=== PATIENT | male | born 1930 | race African-American/Black ===

== ENCOUNTER 2017-04-25 13:06 | Inpatient (IN) | payer MEDICARE, OTHER ==
[~2017-04-25] VITALS: Ht 170.2 cm; Wt 72.0 kg
[2017-04-25] MEDS ORDERED: SODIUM CHLORIDE 0.9% 500 ML IVB ONE (13:51)
[2017-04-25 14:51] LABS: Hematocrit 36.8 % (41.0-53.0); Hemoglobin 11.9 g/dL (13.5-17.5); Mean Corpuscular Hemoglobin 28.5 pg (28.0-32.0); Mean Corpuscular Hgb Conc. 32.3 g/dL (32.0-36.0); Mean Corpuscular Volume 88.3 fL (80.0-100.0); Platelet Count (auto) 179 10^3/uL (140-450); Red Blood Cells 4.17 10^6/uL (4.5-5.90); White Blood Cell 4.9 10^3/uL (4.4-10.8)
[2017-04-25 15:00] LABS: Band Neutrophils % (manual) 0; Eosinophils % (manual) 0 (0-7)
[2017-04-25 15:01] LABS: Basophils % (manual) 0 (0.0-2.0); Blast Cells 0; Metamyelocytes % 0; Myelocytes % 0; Promyelocytes % 0; Reactive Lymphocytes 0
[2017-04-25 15:14] LABS: Lymphocytes % (manual) 11 (10.0-50.0); Monocytes % (manual) 2 (0-12)
[2017-04-25 15:15] LABS: BUN/Creatinine Ratio 14.4; Magnesium 1.9 mg/dL (1.6-2.6)
[2017-04-25 15:20] LABS: Bilirubin, Total 0.8 mg/dL (0.2-1.0); Total Protein 6.6 g/dL (6.4-8.2)
[2017-04-25] MEDS ORDERED: ASPirin 81 mg TAB PO ONE (20:00)
[2017-04-25] MEDS ORDERED: MORPHINE SULFATE 4 MG/ML SYR/VIAL IV PRN (20:00)
[2017-04-25] MEDS ORDERED: LACTULOSE 20Gm/30ML SOLN PO PRN (20:00)
[2017-04-25] MEDS ORDERED: NITROGLYCERIN 0.4 MG SL TAB SL PRN (20:00)
[2017-04-25] MEDS ORDERED: DEXTROSE (50%) 50ML SYRG IV PRN (20:00)
[2017-04-25] MEDS: SODIUM CHLORIDE 0.9% 1,000 ML IV SCH (20:41)
[2017-04-25] MEDS ORDERED: APIX2.5T OR (21:05)
[2017-04-25 21:15] VITALS: BP 127/56
[2017-04-25] MEDS ORDERED: ATORVASTATIN 20 MG TAB PO SCH (22:00)
[2017-04-25] MEDS: METOPROLOL TARTRATE 25 MG TAB PO SCH (22:37)
[2017-04-25 23:00] VITALS: BP 127/56
[2017-04-26 05:00] VITALS: BP 134/83
[2017-04-26] MEDS: ACCU-CHEK COMFORT CURVE STRIP VI SCH ×4 (06:00→17:44)
[2017-04-26] MEDS: InsuLIN REG 1unit/0.01ml Soln (100units/ml) SC SCH ×4 (06:00→17:45)
[2017-04-26 06:30] LABS: Basophils # (auto) 0 uL; Basophils % (auto) 0.3 % (0.0-2.0); Eosinophils # (auto) 0 uL; Eosinophils % (auto) 0.1 % (0.0-7.0); Hemoglobin 12.1 g/dL (13.5-17.5); Lymphocytes # (auto) 0.6 uL; Lymphocytes % (auto) 13.5 % (10.0-50.0); Mean Corpuscular Hemoglobin 29.1 pg (28.0-32.0); Mean Corpuscular Hgb Conc. 32.6 g/dL (32.0-36.0); Mean Corpuscular Volume 89.5 fL (80.0-100.0); Monocytes # (auto) 0.4 uL; Monocytes % (auto) 9.4 % (0.0-12.0); Neutrophils # (auto) 3.2 uL; Neutrophils % (auto) 76.7 % (37.0-80.0); Nucleated Red Blood Cells % 0.1 %; Platelet Count (auto) 170 10^3/uL (140-450); Red Blood Cells 4.14 10^6/uL (4.5-5.90); Red Cell Distribution Width 14.8 % (11.8-14.3); White Blood Cell 4.1 10^3/uL (4.4-10.8)
[2017-04-26 06:49] LABS: INR 1.22 (0.9-1.15); Partial Thromboplastin Time 32.1 sec (22.64-33.71); Prothrombin Time 13.3 sec (9.37-12.3)
[2017-04-26 07:05] LABS: Albumin 2.9 g/dL (3.4-5.0); BUN/Creatinine Ratio 17.5; Bilirubin, Total 0.8 mg/dL (0.2-1.0); Calcium 8.1 mg/dL (8.5-10.1); Potassium 4.1 mmol/L (3.5-5.1); Total Protein 6.3 g/dL (6.4-8.2)
[2017-04-26] MEDS: SODIUM CHLORIDE 0.9% 1,000 ML IV SCH ×2 (08:25→20:37)
[2017-04-26 08:26] VITALS: BP 138/69
[2017-04-26] MEDS: METOPROLOL TARTRATE 25 MG TAB PO SCH ×2 (09:43→21:48)
[2017-04-26] MEDS: PANTOPRAZOLE 40 MG/10 ML VIAL IV SCH (09:43)
[2017-04-26] MEDS: AMIODARONE HCL 200 MG TAB PO SCH (09:44)
[2017-04-26] MEDS ORDERED: ASPirin 81 mg TAB PO SCH (10:00)
[2017-04-26] MEDS ORDERED: ENOXAPARIN SOD 30 MG/0.3 ML SYRINGE SC SCH (10:00)
[2017-04-26] MEDS ORDERED: ENALAPRIL MALEATE 2.5 MG TAB PO SCH (10:00)
[2017-04-26] MEDS ORDERED: APIXABAN 2.5 MG TAB PO SCH (10:00)
[2017-04-26] MEDS ORDERED: PATIENTS OWN MEDICATION (eliquis 5 MG) PO SCH (10:00)
[2017-04-26 10:17] LABS: Urine Bacteria FEW /hpf (None Seen); Urine Blood 2+ /uL (Negative); Urine Mucus FEW (None Seen); Urine Specific Gravity 1.022 (1.001-1.035); Urine WBC 1 /hpf (0 - 3)
[2017-04-26] MEDS ORDERED: ACETAMINOPHEN 325 MG TAB PO ONE (11:45)
[2017-04-26] MEDS ORDERED: ACETAMINOPHEN 325 MG TAB PO PRN (12:15)
[2017-04-26 12:20] VITALS: BP 99/60
[2017-04-26] MEDS ORDERED: cefTRIAXone 1GM/10ml IVPUSH 10 ML IV ONE (12:30)
[2017-04-26] MEDS ORDERED: OSELTAMIVIR 30 MG CAP PO SCH (15:42)
[2017-04-26 16:54] VITALS: BP 141/50
[2017-04-26] MEDS ORDERED: MELA3TAB27 PO (18:42)
[2017-04-26] MEDS ORDERED: MISC450C PO (18:42)
[2017-04-26] MEDS ORDERED: METO25TA62 PO (18:42)
[2017-04-26] MEDS ORDERED: CHOL100047 PO (18:42)
[2017-04-26] MEDS ORDERED: RAMI2.5C33 PO (18:42)
[2017-04-26] MEDS ORDERED: AMIO200T33 PO (18:42)
[2017-04-26] MEDS ORDERED: APIX2.5T PO (18:42)
[2017-04-26] MEDS: APIXABAN 5 MG TAB PO SCH (21:46)
[2017-04-26] MEDS: OSELTAMIVIR 75 MG PO SCH (21:46)
[2017-04-26 22:14] VITALS: BP 131/62
[2017-04-27] MEDS: ACCU-CHEK COMFORT CURVE STRIP VI SCH ×5 (00:10→23:51)
[2017-04-27 05:14] VITALS: BP 130/53
[2017-04-27] MEDS: InsuLIN REG 1unit/0.01ml Soln (100units/ml) SC SCH ×5 (05:37→23:51)
[2017-04-27 09:00] VITALS: BP 144/74
[2017-04-27] MEDS: cefTRIAXone 1GM/10ml IVPUSH 10 ML IV SCH (09:37)
[2017-04-27] MEDS: APIXABAN 5 MG TAB PO SCH ×2 (09:45→22:05)
[2017-04-27] MEDS: AMIODARONE HCL 200 MG TAB PO SCH (09:45)
[2017-04-27] MEDS: METOPROLOL TARTRATE 25 MG TAB PO SCH ×2 (09:46→22:00)
[2017-04-27] MEDS: PANTOPRAZOLE 40 MG/10 ML VIAL IV SCH (09:46)
[2017-04-27] MEDS: OSELTAMIVIR 75 MG PO SCH ×2 (09:46→22:19)
[2017-04-27 13:00] VITALS: BP 144/80
[2017-04-27 14:24] LABS: Basophils # (auto) 0 uL; Basophils % (auto) 0.2 % (0.0-2.0); Eosinophils # (auto) 0 uL; Hemoglobin 11.4 g/dL (13.5-17.5); Lymphocytes # (auto) 0.3 uL; Lymphocytes % (auto) 6.9 % (10.0-50.0); Mean Corpuscular Hemoglobin 29.1 pg (28.0-32.0); Mean Corpuscular Hgb Conc. 32.7 g/dL (32.0-36.0); Mean Corpuscular Volume 88.9 fL (80.0-100.0); Monocytes # (auto) 0.3 uL; Monocytes % (auto) 5.6 % (0.0-12.0); Neutrophils # (auto) 4.4 uL; Neutrophils % (auto) 87.3 % (37.0-80.0); Nucleated Red Blood Cells % 0.1 %; Platelet Count (auto) 163 10^3/uL (140-450); Red Blood Cells 3.94 10^6/uL (4.5-5.90)
[2017-04-27 14:47] LABS: Albumin 2.4 g/dL (3.4-5.0); Bilirubin, Total 0.5 mg/dL (0.2-1.0); Calcium 7.4 mg/dL (8.5-10.1); Potassium 3.5 mmol/L (3.5-5.1); Total Protein 5.7 g/dL (6.4-8.2)
[2017-04-27] MEDS: SODIUM CHLORIDE 0.9% 1,000 ML IV SCH ×2 (16:14→22:05)
[2017-04-27 18:07] VITALS: BP 149/72
[2017-04-27 21:47] VITALS: BP 125/53
[2017-04-28 05:00] VITALS: BP 134/50
[2017-04-28] MEDS: InsuLIN REG 1unit/0.01ml Soln (100units/ml) SC SCH ×3 (06:00→17:47)
[2017-04-28] MEDS: ACCU-CHEK COMFORT CURVE STRIP VI SCH ×3 (06:33→17:47)
[2017-04-28 08:00] VITALS: BP 137/70
[2017-04-28] MEDS: PANTOPRAZOLE 40 MG/10 ML VIAL IV SCH (09:39)
[2017-04-28] MEDS: cefTRIAXone 1GM/10ml IVPUSH 10 ML IV SCH (09:39)
[2017-04-28] MEDS: OSELTAMIVIR 75 MG PO SCH ×2 (09:40→22:21)
[2017-04-28] MEDS: AMIODARONE HCL 200 MG TAB PO SCH (09:40)
[2017-04-28] MEDS: APIXABAN 5 MG TAB PO SCH ×2 (09:40→22:22)
[2017-04-28] MEDS: METOPROLOL TARTRATE 25 MG TAB PO SCH ×2 (09:41→22:00)
[2017-04-28] MEDS: SODIUM CHLORIDE 0.9% 1,000 ML IV SCH ×2 (09:41→22:55)
[2017-04-28 13:00] VITALS: BP 129/65
[2017-04-28 17:00] VITALS: BP 133/59
[2017-04-28 22:29] VITALS: BP 136/86
[2017-04-29] MEDS: ACCU-CHEK COMFORT CURVE STRIP VI SCH ×5 (00:43→23:50)
[2017-04-29 05:00] VITALS: BP 133/57
[2017-04-29] MEDS: InsuLIN REG 1unit/0.01ml Soln (100units/ml) SC SCH ×5 (06:00→23:50)
[2017-04-29 08:00] VITALS: BP 137/51
[2017-04-29] MEDS: PANTOPRAZOLE 40 MG/10 ML VIAL IV SCH (10:39)
[2017-04-29] MEDS: AMIODARONE HCL 200 MG TAB PO SCH (10:40)
[2017-04-29] MEDS: APIXABAN 5 MG TAB PO SCH ×2 (10:40→21:57)
[2017-04-29] MEDS: OSELTAMIVIR 75 MG PO SCH ×2 (10:40→21:57)
[2017-04-29] MEDS: METOPROLOL TARTRATE 25 MG TAB PO SCH (10:41)
[2017-04-29] MEDS: cefTRIAXone 1GM/10ml IVPUSH 10 ML IV SCH (10:41)
[2017-04-29 11:12] LABS: Hepatitis B Surface Antibody Negative
[2017-04-29 11:22] LABS: Hepatitis B Surface Antigen Negative (Negative)
[2017-04-29 11:49] LABS: Hepatitis A Total Antibody Positive; Hepatitis C Antibody Negative (Negative)
[2017-04-29 11:50] LABS: Hepatitis B Core Total AB Negative
[2017-04-29] MEDS: SODIUM CHLORIDE 0.9% 1,000 ML IV SCH ×2 (12:58→23:55)
[2017-04-29 13:00] VITALS: BP 124/51
[2017-04-29 16:29] VITALS: BP 121/54
[2017-04-29 21:31] VITALS: BP 146/99
[2017-04-30 04:54] VITALS: BP 145/67
[2017-04-30] MEDS: InsuLIN REG 1unit/0.01ml Soln (100units/ml) SC SCH ×3 (05:52→18:00)
[2017-04-30] MEDS: ACCU-CHEK COMFORT CURVE STRIP VI SCH ×3 (05:52→18:04)
[2017-04-30 08:58] VITALS: BP 138/59
[2017-04-30] MEDS: cefTRIAXone 1GM/10ml IVPUSH 10 ML IV SCH (09:35)
[2017-04-30] MEDS: PANTOPRAZOLE 40 MG/10 ML VIAL IV SCH (10:12)
[2017-04-30] MEDS: OSELTAMIVIR 75 MG PO SCH ×2 (10:13→22:45)
[2017-04-30] MEDS: AMIODARONE HCL 200 MG TAB PO SCH (10:13)
[2017-04-30] MEDS: APIXABAN 5 MG TAB PO SCH ×2 (10:13→22:45)
[2017-04-30] MEDS: SODIUM CHLORIDE 0.9% 1,000 ML IV SCH (12:12)
[2017-04-30 13:31] VITALS: BP 134/60
[2017-04-30 16:05] VITALS: BP 133/60
[2017-04-30 22:00] VITALS: BP 149/61
[2017-05-01] MEDS: SODIUM CHLORIDE 0.9% 1,000 ML IV SCH ×2 (00:55→12:07)
[2017-05-01 05:19] LABS: Basophils # (auto) 0 uL; Basophils % (auto) 0.6 % (0.0-2.0); Eosinophils # (auto) 0 uL; Eosinophils % (auto) 0.1 % (0.0-7.0); Hematocrit 34.5 % (41.0-53.0); Lymphocytes # (auto) 0.7 uL; Lymphocytes % (auto) 15.4 % (10.0-50.0); Mean Corpuscular Hemoglobin 28.6 pg (28.0-32.0); Mean Corpuscular Volume 89.2 fL (80.0-100.0); Monocytes # (auto) 0.3 uL; Monocytes % (auto) 7.6 % (0.0-12.0); Neutrophils # (auto) 3.4 uL; Neutrophils % (auto) 76.3 % (37.0-80.0); Platelet Count (auto) 199 10^3/uL (140-450); Red Blood Cells 3.86 10^6/uL (4.5-5.90); Red Cell Distribution Width 14.5 % (11.8-14.3); White Blood Cell 4.5 10^3/uL (4.4-10.8)
[2017-05-01 05:39] LABS: Albumin 2.1 g/dL (3.4-5.0); BUN/Creatinine Ratio 11.1; Bilirubin, Total 0.7 mg/dL (0.2-1.0); Calcium 7.6 mg/dL (8.5-10.1); Total Protein 5.9 g/dL (6.4-8.2)
[2017-05-01 05:42] VITALS: BP 139/69
[2017-05-01 05:50] LABS: Potassium 2.8 mmol/L (3.5-5.1)
[2017-05-01] MEDS: ACCU-CHEK COMFORT CURVE STRIP VI SCH ×4 (06:00→18:45)
[2017-05-01] MEDS: InsuLIN REG 1unit/0.01ml Soln (100units/ml) SC SCH ×4 (06:00→18:00)
[2017-05-01] MEDS: POTASSIUM CHL 20MEQ/50ML 50 ML IV SCH ×4 (07:48→09:08)
[2017-05-01] MEDS: cefTRIAXone 1GM/10ml IVPUSH 10 ML IV SCH (08:19)
[2017-05-01 08:30] VITALS: BP 153/70
[2017-05-01] MEDS ORDERED: POTASSIUM CHLORIDE 20 MEQ, LIDOCAINE 1% (LOCAL ANESTH.) 2 ML in SODIUM CHL 0.9% 100 ML IV ONE (09:15)
[2017-05-01] MEDS: AMIODARONE HCL 200 MG TAB PO SCH (12:05)
[2017-05-01] MEDS: OSELTAMIVIR 75 MG PO SCH (12:06)
[2017-05-01] MEDS: APIXABAN 5 MG TAB PO SCH ×2 (12:06→21:59)
[2017-05-01] MEDS: PANTOPRAZOLE 40 MG/10 ML VIAL IV SCH (12:06)
[2017-05-01 12:44] VITALS: BP 145/71
[2017-05-01 17:00] VITALS: BP 148/67
[2017-05-01 22:00] VITALS: BP 150/76
[2017-05-02] MEDS: ACCU-CHEK COMFORT CURVE STRIP VI SCH ×3 (00:23→11:23)
[2017-05-02] MEDS: SODIUM CHLORIDE 0.9% 1,000 ML IV SCH (01:55)
[2017-05-02 05:00] VITALS: BP 153/68
[2017-05-02] MEDS: InsuLIN REG 1unit/0.01ml Soln (100units/ml) SC SCH ×3 (05:36→11:24)
[2017-05-02 08:57] LABS: Basophils # (auto) 0 uL; Basophils % (auto) 0.4 % (0.0-2.0); Eosinophils # (auto) 0 uL; Eosinophils % (auto) 0.2 % (0.0-7.0); Hematocrit 34.4 % (41.0-53.0); Hemoglobin 11.1 g/dL (13.5-17.5); Lymphocytes # (auto) 0.6 uL; Lymphocytes % (auto) 12.9 % (10.0-50.0); Mean Corpuscular Hgb Conc. 32.4 g/dL (32.0-36.0); Mean Corpuscular Volume 86.5 fL (80.0-100.0); Monocytes # (auto) 0.4 uL; Neutrophils # (auto) 3.3 uL; Neutrophils % (auto) 77.5 % (37.0-80.0); Nucleated Red Blood Cells % 0.2 %; Platelet Count (auto) 244 10^3/uL (140-450); Red Blood Cells 3.98 10^6/uL (4.5-5.90); Red Cell Distribution Width 14.2 % (11.8-14.3); White Blood Cell 4.3 10^3/uL (4.4-10.8)
[2017-05-02 09:00] VITALS: BP 154/54
[2017-05-02 09:00] LABS: Albumin 1.9 g/dL (3.4-5.0); BUN/Creatinine Ratio 11.1; Bilirubin, Total 0.7 mg/dL (0.2-1.0); Calcium 7.6 mg/dL (8.5-10.1); Total Protein 5.5 g/dL (6.4-8.2)
[2017-05-02 09:04] LABS: Potassium 2.8 mmol/L (3.5-5.1)
[2017-05-02] MEDS: PANTOPRAZOLE 40 MG/10 ML VIAL IV SCH (09:12)
[2017-05-02] MEDS: APIXABAN 5 MG TAB PO SCH (09:12)
[2017-05-02] MEDS: AMIODARONE HCL 200 MG TAB PO SCH (09:12)
[2017-05-02] MEDS: cefTRIAXone 1GM/10ml IVPUSH 10 ML IV SCH (09:13)
[2017-05-02] MEDS ORDERED: POTASSIUM CHL 10% (20 MEQ/15ML) 15ml ORAL SOLN PO ONE ×2 (09:15→14:30)
[2017-05-02] MEDS ORDERED: ARTIFICIAL TEARS 15ml EACHEYE ONE (10:00)
[2017-05-02 10:28] VITALS: BP 154/54
[2017-05-02 10:53] VITALS: BP 154/54
== END 2017-05-02 13:00 | disposition home or self-care (01) | DRG 871 ==
LOC: ER 13:06 → EDUNIT# 13:06 → EDBD 13:06 → TELE 13:07 → TELE-CENTR 21:12
PROVIDERS: ADMIT Family Medicine; ATTEND Family Medicine
DX: A41.9 Sepsis, unspecified organism (principal); G93.40 Encephalopathy, unspecified; E44.0 Moderate protein-calorie malnutrition; I48.0 Paroxysmal atrial fibrillation; G20 Parkinson's disease; D64.9 Anemia, unspecified; E11.9 Type 2 diabetes mellitus without complications; E78.00 Pure hypercholesterolemia, unspecified; E87.6 Hypokalemia; F02.80 Dementia in other diseases classified elsewhere, unspecified severity, without behavioral disturbance, psychotic disturbance, mood disturbance, and anxiety; I10 Essential (primary) hypertension; I67.2 Cerebral atherosclerosis; I70.0 Atherosclerosis of aorta; J10.1 Influenza due to other identified influenza virus with other respiratory manifestations; Z79.01 Long term (current) use of anticoagulants; Z79.4 Long term (current) use of insulin; Z83.3 Family history of diabetes mellitus; Z79.82 Long term (current) use of aspirin; Z79.899 Other long term (current) drug therapy; Z68.24 Body mass index [BMI] 24.0-24.9, adult
CPT/HCPCS: 36415; 70450; 71010; 76705; 80053; 80061; 81001; 82140; 82728; 82962; 83036; 83605; 83735; 83880; 84484; 85007; 85025; 85027; 85610; 85730; 86704; 86706; 86708; 86803; 87040; 87081; 87340; 87400; 93005; 94761; 96360; C9113; G9035

== ENCOUNTER 2017-05-10 13:14 | Emergency (ER) | payer MEDICARE, OTHER ==
[~2017-05-10] VITALS: Ht 172.7 cm; Wt 72.6 kg
[~2017-05-10 13:14] MED LIST: AMIO200T33 PO; APIX2.5T OR; APIX2.5T PO; CHOL100047 PO; MELA3TAB27 PO; METO25TA62 PO; MISC450C PO; RAMI2.5C33 PO
[2017-05-10 15:58] VITALS: BP 160/97
[2017-05-10] MEDS ORDERED: ACETAMINOPHEN 500 MG TAB PO ONE ×2 (16:26→16:30)
== END 2017-05-10 16:48 | disposition home or self-care (01) ==
LOC: EDBD 13:14 → ER 13:14
DX: S46.911A Strain of unspecified muscle, fascia and tendon at shoulder and upper arm level, right arm, initial encounter (principal); S20.411A Abrasion of right back wall of thorax, initial encounter; W07.XXXA Fall from chair, initial encounter; Y93.89 Activity, other specified; Y92.89 Other specified places as the place of occurrence of the external cause; Y99.8 Other external cause status
CPT/HCPCS: 73030

== ENCOUNTER 2017-05-18 16:44 | Inpatient (IN) | payer MEDICARE, OTHER ==
[~2017-05-18] VITALS: Ht 185.4 cm; Wt 68.0 kg
[2017-05-18 18:00] LABS: Basophils # (auto) 0.1 uL; Basophils % (auto) 0.5 % (0.0-2.0); Eosinophils # (auto) 0 uL; Eosinophils % (auto) 0.1 % (0.0-7.0); Hematocrit 40.7 % (41.0-53.0); Hemoglobin 12.7 g/dL (13.5-17.5); Lymphocytes # (auto) 0.5 uL; Lymphocytes % (auto) 2.7 % (10.0-50.0); Mean Corpuscular Hemoglobin 28.1 pg (28.0-32.0); Mean Corpuscular Hgb Conc. 31.3 g/dL (32.0-36.0); Mean Corpuscular Volume 89.8 fL (80.0-100.0); Monocytes # (auto) 0.4 uL; Monocytes % (auto) 2.2 % (0.0-12.0); Neutrophils # (auto) 16.6 uL; Neutrophils % (auto) 94.5 % (37.0-80.0); Nucleated Red Blood Cells % 0.1 %; Platelet Count (auto) 530 10^3/uL (140-450); Red Blood Cells 4.53 10^6/uL (4.5-5.90); Red Cell Distribution Width 14.6 % (11.8-14.3); White Blood Cell 17.5 10^3/uL (4.4-10.8)
[2017-05-18 18:32] LABS: Albumin 2.8 g/dL (3.4-5.0); BUN/Creatinine Ratio 16.3; Bilirubin, Total 1.6 mg/dL (0.2-1.0); Calcium 8.6 mg/dL (8.5-10.1); Magnesium 2.7 mg/dL (1.6-2.6); Potassium 4.3 mmol/L (3.5-5.1)
[2017-05-18] MEDS ORDERED: SODIUM CHLORIDE 0.9% 1,000 ML IVB ONE (20:15)
[2017-05-18] MEDS ORDERED: cefTRIAXone 1GM/10ml IVPUSH 10 ML IV ONE (20:30)
[2017-05-18] MEDS ORDERED: AZITHROMYCIN 500MG/ 250ML 250 ML IV ONE (20:30)
[2017-05-18 20:36] LABS: INR 1.31 (0.9-1.15); Partial Thromboplastin Time 30.8 sec (22.64-33.71); Prothrombin Time 14.3 sec (9.37-12.3)
[2017-05-18 22:41] LABS: Lactic Acid w/Reflex 3.9 mmol/L (0.4-2.0)
[2017-05-18 22:49] LABS: Urine Bacteria FEW /hpf (None Seen); Urine Blood Negative /uL (Negative); Urine Hyaline Cast MANY /lpf (0 - 2); Urine Mucus FEW (None Seen); Urine Specific Gravity 1.018 (1.001-1.035); Urine WBC 4 /hpf (0 - 3)
[2017-05-18] MEDS ORDERED: SODIUM CHLORIDE 0.9% 1,500 ML IV ONE (23:30)
[2017-05-19] MEDS ORDERED: MORPHINE SULFATE 10 MG/ML INJ 1ML SDV IV PRN (00:15)
[2017-05-19] MEDS ORDERED: VANCOMYCIN PER PHARMACY 0 MG IV SCH (00:15)
[2017-05-19] MEDS ORDERED: HYDROcodone-ACET 5/325MG TAB PO PRN (00:15)
[2017-05-19] MEDS ORDERED: ONDANSETRON HCL 4 MG/2 ML VIAL IV PRN (00:15)
[2017-05-19] MEDS ORDERED: VANCOMYCIN 1GM/250ML 250 ML IV ONE (00:30)
[2017-05-19] MEDS: PIPERACILLIN-TAZOB 2.25GM 50 ML IV SCH ×3 (06:17→22:06)
[2017-05-19 08:06] LABS: Basophils # (auto) 0.2 uL; Basophils % (auto) 0.8 % (0.0-2.0); Eosinophils # (auto) 0 uL; Hematocrit 36.8 % (41.0-53.0); Hemoglobin 12.1 g/dL (13.5-17.5); Lymphocytes # (auto) 0.7 uL; Lymphocytes % (auto) 3.8 % (10.0-50.0); Mean Corpuscular Hemoglobin 28.8 pg (28.0-32.0); Mean Corpuscular Hgb Conc. 32.8 g/dL (32.0-36.0); Mean Corpuscular Volume 87.7 fL (80.0-100.0); Monocytes # (auto) 0.7 uL; Monocytes % (auto) 3.8 % (0.0-12.0); Neutrophils # (auto) 16.5 uL; Neutrophils % (auto) 91.6 % (37.0-80.0); Platelet Count (auto) 351 10^3/uL (140-450); Red Blood Cells 4.19 10^6/uL (4.5-5.90); Red Cell Distribution Width 14.3 % (11.8-14.3)
[2017-05-19 08:34] LABS: BUN/Creatinine Ratio 19.3; Calcium 8.4 mg/dL (8.5-10.1); Potassium 4.2 mmol/L (3.5-5.1)
[2017-05-19] MEDS: APIXABAN 2.5 MG TAB PO SCH ×2 (10:53→22:06)
[2017-05-19] MEDS: SODIUM CHLORIDE 0.9% 1,000 ML IV SCH ×2 (14:24→22:05)
[2017-05-19 18:35] VITALS: BP 124/58
[2017-05-19] MEDS ORDERED: DOCU100T15 PO (21:16)
[2017-05-19] MEDS ORDERED: BUME0.5T3 PO (21:16)
[2017-05-19] MEDS ORDERED: TRAM50TA2 PO (21:16)
[2017-05-19] MEDS ORDERED: POTA-165 PO (21:16)
[2017-05-19 21:20] VITALS: BP 123/76
[2017-05-20] MEDS ORDERED: VANCOMYCIN 1GM/250ML 250 ML IV SCH (01:00)
[2017-05-20 05:00] VITALS: BP 128/74
[2017-05-20] MEDS: PIPERACILLIN-TAZOB 2.25GM 50 ML IV SCH (05:58)
[2017-05-20 08:00] VITALS: BP 139/67
[2017-05-20 08:04] LABS: Basophils # (auto) 0.1 uL; Basophils % (auto) 0.5 % (0.0-2.0); Eosinophils # (auto) 0.1 uL; Eosinophils % (auto) 1.2 % (0.0-7.0); Hemoglobin 10.5 g/dL (13.5-17.5); Lymphocytes # (auto) 0.8 uL; Lymphocytes % (auto) 8.3 % (10.0-50.0); Mean Corpuscular Hemoglobin 28.3 pg (28.0-32.0); Mean Corpuscular Hgb Conc. 31.8 g/dL (32.0-36.0); Mean Corpuscular Volume 88.9 fL (80.0-100.0); Monocytes # (auto) 0.5 uL; Monocytes % (auto) 5.8 % (0.0-12.0); Neutrophils # (auto) 7.9 uL; Neutrophils % (auto) 84.2 % (37.0-80.0); Platelet Count (auto) 308 10^3/uL (140-450); Red Blood Cells 3.72 10^6/uL (4.5-5.90); Red Cell Distribution Width 14.4 % (11.8-14.3); White Blood Cell 9.3 10^3/uL (4.4-10.8)
[2017-05-20 08:19] LABS: BUN/Creatinine Ratio 19.6; Calcium 7.8 mg/dL (8.5-10.1)
[2017-05-20 08:37] VITALS: BP 139/67
[2017-05-20] MEDS: LEVOFLOXACIN 500MG 100 ML IV SCH (10:24)
[2017-05-20] MEDS: APIXABAN 2.5 MG TAB PO SCH ×2 (10:24→22:22)
[2017-05-20] MEDS: AMIODARONE HCL 200 MG TAB PO SCH (10:25)
[2017-05-20 13:00] VITALS: BP 125/59
[2017-05-20 17:16] VITALS: BP 142/60
[2017-05-20] MEDS: Boost Glucose Control 8 Ounces PO SCH (20:55)
[2017-05-20 22:00] VITALS: BP 147/67
[2017-05-20] MEDS: ASCORBIC ACID 500 MG TAB PO SCH (22:22)
[2017-05-21 05:00] VITALS: BP 127/70
[2017-05-21 07:44] LABS: Basophils # (auto) 0.1 uL; Basophils % (auto) 0.6 % (0.0-2.0); Eosinophils # (auto) 0.1 uL; Eosinophils % (auto) 0.9 % (0.0-7.0); Hematocrit 34.5 % (41.0-53.0); Hemoglobin 11.1 g/dL (13.5-17.5); Lymphocytes # (auto) 0.7 uL; Lymphocytes % (auto) 6.9 % (10.0-50.0); Mean Corpuscular Hemoglobin 28.6 pg (28.0-32.0); Mean Corpuscular Hgb Conc. 32.3 g/dL (32.0-36.0); Mean Corpuscular Volume 88.4 fL (80.0-100.0); Monocytes # (auto) 0.5 uL; Monocytes % (auto) 5.5 % (0.0-12.0); Neutrophils # (auto) 8.1 uL; Neutrophils % (auto) 86.1 % (37.0-80.0); Platelet Count (auto) 323 10^3/uL (140-450); Red Cell Distribution Width 13.9 % (11.8-14.3); White Blood Cell 9.5 10^3/uL (4.4-10.8)
[2017-05-21 07:56] LABS: BUN/Creatinine Ratio 18.1; Calcium 8.4 mg/dL (8.5-10.1); Potassium 3.7 mmol/L (3.5-5.1)
[2017-05-21 09:00] VITALS: BP 102/45
[2017-05-21] MEDS: PRO-STAT 64 30ML GT SCH (10:00)
[2017-05-21] MEDS: Boost Glucose Control 8 Ounces PO SCH ×2 (11:04→18:00)
[2017-05-21] MEDS: LEVOFLOXACIN 500MG 100 ML IV SCH (11:05)
[2017-05-21] MEDS: AMIODARONE HCL 200 MG TAB PO SCH (11:05)
[2017-05-21] MEDS: MULTIPLE VITAMINS W/ MINERALS TAB PO SCH (11:06)
[2017-05-21] MEDS: APIXABAN 2.5 MG TAB PO SCH ×2 (11:06→21:52)
[2017-05-21] MEDS: ASCORBIC ACID 500 MG TAB PO SCH ×2 (11:06→21:52)
[2017-05-21 13:45] VITALS: BP 122/66
[2017-05-21 17:00] VITALS: BP 132/68
[2017-05-21] MEDS: ACETAMINOPHEN 500 MG TAB PO PRN (20:04)
[2017-05-21] MEDS: MEGESTROL ACETATE 20 MG TAB PO SCH (21:52)
[2017-05-21 22:00] VITALS: BP 99/55
[2017-05-22 04:36] VITALS: BP 119/57
[2017-05-22 07:20] LABS: Basophils # (auto) 0.1 uL; Eosinophils # (auto) 0.2 uL; Eosinophils % (auto) 2.4 % (0.0-7.0); Hematocrit 34.5 % (41.0-53.0); Hemoglobin 11.3 g/dL (13.5-17.5); Lymphocytes # (auto) 0.8 uL; Mean Corpuscular Hemoglobin 28.7 pg (28.0-32.0); Mean Corpuscular Hgb Conc. 32.7 g/dL (32.0-36.0); Mean Corpuscular Volume 87.8 fL (80.0-100.0); Monocytes # (auto) 0.4 uL; Monocytes % (auto) 6.7 % (0.0-12.0); Neutrophils # (auto) 5.2 uL; Neutrophils % (auto) 77.9 % (37.0-80.0); Platelet Count (auto) 316 10^3/uL (140-450); Red Blood Cells 3.93 10^6/uL (4.5-5.90); Red Cell Distribution Width 13.9 % (11.8-14.3); White Blood Cell 6.7 10^3/uL (4.4-10.8)
[2017-05-22 07:39] LABS: BUN/Creatinine Ratio 17.3; Calcium 8.2 mg/dL (8.5-10.1); Potassium 3.8 mmol/L (3.5-5.1)
[2017-05-22 09:00] VITALS: BP 116/56
[2017-05-22] MEDS: CITALOPRAM HYDROBR 20 MG TAB PO SCH (10:57)
[2017-05-22] MEDS: MEGESTROL ACETATE 20 MG TAB PO SCH ×2 (10:57→22:48)
[2017-05-22] MEDS: MULTIPLE VITAMINS W/ MINERALS TAB PO SCH (10:57)
[2017-05-22] MEDS: APIXABAN 2.5 MG TAB PO SCH ×2 (10:57→22:48)
[2017-05-22] MEDS: ASCORBIC ACID 500 MG TAB PO SCH ×2 (10:57→22:47)
[2017-05-22] MEDS: AMIODARONE HCL 200 MG TAB PO SCH (10:58)
[2017-05-22] MEDS: LEVOFLOXACIN 500MG 100 ML IV SCH (10:58)
[2017-05-22] MEDS: Boost Glucose Control 8 Ounces PO SCH ×2 (11:01→18:00)
[2017-05-22] MEDS: PRO-STAT 64 30ML GT SCH (11:01)
[2017-05-22 12:58] VITALS: BP 105/58
[2017-05-22 16:49] VITALS: BP 104/57
[2017-05-22 20:00] VITALS: BP 123/62
[2017-05-22 22:00] VITALS: BP 123/62
[2017-05-22] MEDS: ACETAMINOPHEN 500 MG TAB PO PRN (22:49)
[2017-05-23 05:12] VITALS: BP 117/53
[2017-05-23] MEDS: Boost Glucose Control 8 Ounces PO SCH (08:00)
[2017-05-23 09:00] VITALS: BP 83/57
[2017-05-23] MEDS: AMIODARONE HCL 200 MG TAB PO SCH (09:51)
[2017-05-23] MEDS: MULTIPLE VITAMINS W/ MINERALS TAB PO SCH (09:51)
[2017-05-23] MEDS: ASCORBIC ACID 500 MG TAB PO SCH (09:52)
[2017-05-23] MEDS: APIXABAN 2.5 MG TAB PO SCH (09:52)
[2017-05-23] MEDS: MEGESTROL ACETATE 20 MG TAB PO SCH (09:52)
[2017-05-23] MEDS: CITALOPRAM HYDROBR 20 MG TAB PO SCH (09:52)
[2017-05-23] MEDS: LEVOFLOXACIN 500MG 100 ML IV SCH (09:53)
[2017-05-23] MEDS: PRO-STAT 64 30ML GT SCH (14:58)
== END 2017-05-23 14:52 | disposition hospice, home (50) | DRG 871 ==
LOC: EDBD 16:44 → ER 16:44 → EDUNIT# 16:44 → TELE 16:45 → TELE-CENTR 05-19 18:16 → CENTRAL 05-19 23:39
PROVIDERS: ADMIT Nurse Practitioner Family; ATTEND Internal Medicine
DX: A41.9 Sepsis, unspecified organism (principal); G93.41 Metabolic encephalopathy; N17.0 Acute kidney failure with tubular necrosis; E44.0 Moderate protein-calorie malnutrition; J18.1 Lobar pneumonia, unspecified organism; D68.69 Other thrombophilia; E11.22 Type 2 diabetes mellitus with diabetic chronic kidney disease; E11.69 Type 2 diabetes mellitus with other specified complication; I13.0 Hypertensive heart and chronic kidney disease with heart failure and stage 1 through stage 4 chronic kidney disease, or unspecified chronic kidney disease; I42.9 Cardiomyopathy, unspecified; E87.1 Hypo-osmolality and hyponatremia; Z68.1 Body mass index [BMI] 19.9 or less, adult; Z51.5 Encounter for palliative care; E78.5 Hyperlipidemia, unspecified; F03.90 Unspecified dementia, unspecified severity, without behavioral disturbance, psychotic disturbance, mood disturbance, and anxiety; G20 Parkinson's disease; I48.91 Unspecified atrial fibrillation; I50.9 Heart failure, unspecified; R62.7 Adult failure to thrive; R55 Syncope and collapse; N18.3 Chronic kidney disease, stage 3 (moderate); L89.90 Pressure ulcer of unspecified site, unspecified stage; Z79.01 Long term (current) use of anticoagulants
CPT/HCPCS: 36415; 51702; 70450; 71045; 80048; 80053; 81001; 82962; 83605; 83735; 83880; 84484; 85025; 85610; 85730; 87040; 87081; 87086; 93005; 94761; 96365; 96367; 96375; 97110; 97163; 97530; J1956; J2543

== ENCOUNTER 2017-06-20 13:33 | Inpatient (IN) | payer MEDICARE, OTHER ==
[~2017-06-20] VITALS: Ht 185.4 cm; Wt 54.3 kg
[~2017-06-20 13:33] MED LIST changes: -APIX2.5T PO; +BUME0.5T3 PO; +DOCU100T15 PO; +POTA-165 PO; +TRAM50TA2 PO
[2017-06-20] MEDS ORDERED: SODIUM CHLORIDE 0.9% 1,000 ML IV ONE (14:12)
[2017-06-20 14:46] LABS: Basophils # (auto) 0 uL; Eosinophils # (auto) 0 uL; Monocytes # (auto) 0.5 uL
[2017-06-20 14:49] LABS: Basophils % (auto) 0.4 % (0.0-2.0); Eosinophils % (auto) 0.3 % (0.0-7.0); Hematocrit 34.2 % (41.0-53.0); Hemoglobin 10.7 g/dL (13.5-17.5); Lymphocytes # (auto) 0.7 uL; Lymphocytes % (auto) 7.8 % (10.0-50.0); Mean Corpuscular Hemoglobin 27.8 pg (28.0-32.0); Mean Corpuscular Hgb Conc. 31.3 g/dL (32.0-36.0); Monocytes % (auto) 5.1 % (0.0-12.0); Neutrophils # (auto) 7.7 uL; Neutrophils % (auto) 86.4 % (37.0-80.0); Platelet Count (auto) 363 10^3/uL (140-450); Red Blood Cells 3.85 10^6/uL (4.5-5.90); Red Cell Distribution Width 14.9 % (11.8-14.3)
[2017-06-20 15:07] LABS: Alanine Aminotransferase 29 U/L (16-61); Alkaline Phosphatase 75 U/L (45-117); Anion Gap 8 (5-15); Aspartate Aminotransferase 19 U/L (15-37); Bilirubin, Total 0.7 mg/dL (0.2-1.0); Blood Urea Nitrogen 27 mg/dL (7-18); Calcium 7.9 mg/dL (8.5-10.1); Carbon Dioxide 30 mmol/L (21-32); Chloride 94 mmol/L (98-107); GFR African American 87 mL/min; GFR Non-African American 72 mL/min; Glucose 127 mg/dL (74-106); Magnesium 2.2 mg/dL (1.6-2.6); Potassium 3.4 mmol/L (3.5-5.1); Sodium 132 mmol/L (136-145); Total Protein 6.8 g/dL (6.4-8.2)
[2017-06-20 15:48] LABS: Urine Bacteria FEW /hpf (None Seen); Urine Blood 2+ /uL (Negative); Urine Mucus FEW (None Seen); Urine Specific Gravity 1.019 (1.001-1.035); Urine WBC 114 /hpf (0 - 3)
[2017-06-20] MEDS ORDERED: SODIUM CHLORIDE 0.9% 500 ML IV ONE (16:00)
[2017-06-20] MEDS ORDERED: cefTRIAXone 1GM/10ml IVPUSH 10 ML IV ONE (16:00)
[2017-06-20] MEDS ORDERED: LACTULOSE 20Gm/30ML SOLN PO PRN (16:00)
[2017-06-20] MEDS ORDERED: MORPHINE SULFATE 4 MG/ML SYR/VIAL IV PRN ×2 (16:00)
[2017-06-20] MEDS ORDERED: TEMAZEPAM 15 MG CAP PO PRN (16:00)
[2017-06-20] MEDS ORDERED: PROMETHAZINE HCL 25 MG/ML 1ML IV PRN (16:00)
[2017-06-20] MEDS ORDERED: NITROGLYCERIN 0.4 MG SL TAB SL PRN (16:00)
[2017-06-20] MEDS ORDERED: AMIODARONE HCL 150 MG in D5W 5% 100 ML IV ONE (16:00)
[2017-06-20] MEDS ORDERED: LORazepam 0.5 MG TAB PO PRN (16:00)
[2017-06-20] MEDS ORDERED: ACETAMINOPHEN 500 MG TAB PO PRN (16:00)
[2017-06-20] MEDS ORDERED: DEXTROSE (50%) 50ML SYRG IV PRN (16:00)
[2017-06-20] MEDS ORDERED: HYDROcodone-ACET 5/325MG TAB PO PRN (16:00)
[2017-06-20] MEDS: DOCUSATE ORAL LIQUID 100 MG/10 ML UD PO SCH ×2 (16:29→22:00)
[2017-06-20] MEDS: InsuLIN REG 1unit/0.01ml Soln (100units/ml) SC SCH ×2 (17:00→22:00)
[2017-06-20] MEDS: SOD CHL 0.9%/ KCL 20MEQ 1,000 ML IV SCH (17:02)
[2017-06-20] MEDS: ACCU-CHEK COMFORT CURVE STRIP VI SCH ×2 (17:05→22:06)
[2017-06-20 18:24] VITALS: BP 107/46
[2017-06-20 22:00] VITALS: BP 95/51
[2017-06-20] MEDS: APIXABAN 2.5 MG TAB PO SCH (22:00)
[2017-06-20] MEDS: METOPROLOL SUCCINATE XL 50 MG TAB PO SCH (22:00)
[2017-06-21 05:00] VITALS: BP 94/49
[2017-06-21] MEDS: SOD CHL 0.9%/ KCL 20MEQ 1,000 ML IV SCH ×2 (05:20→18:40)
[2017-06-21] MEDS: InsuLIN REG 1unit/0.01ml Soln (100units/ml) SC SCH ×4 (07:00→22:00)
[2017-06-21] MEDS: ACCU-CHEK COMFORT CURVE STRIP VI SCH ×4 (07:10→22:00)
[2017-06-21 09:00] VITALS: BP 100/50
[2017-06-21 09:00] LABS: Potassium 3.3 mmol/L (3.5-5.1)
[2017-06-21] MEDS ORDERED: cefTRIAXone 1GM/10ml IVPUSH 10 ML IV SCH (09:00)
[2017-06-21 09:04] LABS: BUN/Creatinine Ratio 26.8; Calcium 7.8 mg/dL (8.5-10.1)
[2017-06-21 09:06] LABS: Bilirubin, Total 0.7 mg/dL (0.2-1.0); Total Protein 6.2 g/dL (6.4-8.2)
[2017-06-21] MEDS: DOCUSATE ORAL LIQUID 100 MG/10 ML UD PO SCH ×2 (11:47→23:13)
[2017-06-21] MEDS: cefTRIAXone 1GM/10ml IVPUSH 10 ML IV SCH (11:47)
[2017-06-21] MEDS: APIXABAN 2.5 MG TAB PO SCH ×2 (11:47→22:00)
[2017-06-21] MEDS: AMIODARONE HCL 200 MG TAB PO SCH (11:48)
[2017-06-21 13:00] VITALS: BP 114/63
[2017-06-21 17:14] VITALS: BP 104/53
[2017-06-21] MEDS: MULTIPLE VITAMIN TAB PO SCH (18:29)
[2017-06-21] MEDS: ASCORBIC ACID 500 MG TAB PO SCH (18:29)
[2017-06-21] MEDS: Boost Glucose Control 8 Ounces PO SCH (18:29)
[2017-06-21] MEDS ORDERED: MED20T PO (18:51)
[2017-06-21] MEDS ORDERED: CITA-77 PO (18:51)
[2017-06-21] MEDS ORDERED: LORA-654 PO (18:51)
[2017-06-21 22:00] VITALS: BP 126/83
[2017-06-21] MEDS: METOPROLOL SUCCINATE XL 50 MG TAB PO SCH (22:00)
[2017-06-22 05:00] VITALS: BP 132/60
[2017-06-22] MEDS: InsuLIN REG 1unit/0.01ml Soln (100units/ml) SC SCH ×3 (07:00→16:55)
[2017-06-22] MEDS: ACCU-CHEK COMFORT CURVE STRIP VI SCH ×4 (07:10→22:00)
[2017-06-22 07:30] VITALS: BP 128/83
[2017-06-22] MEDS: Boost Glucose Control 8 Ounces PO SCH ×3 (08:00→18:00)
[2017-06-22 09:15] VITALS: BP 135/67
[2017-06-22] MEDS: SOD CHL 0.9%/ KCL 20MEQ 1,000 ML IV SCH ×2 (09:49→21:20)
[2017-06-22] MEDS: cefTRIAXone 1GM/10ml IVPUSH 10 ML IV SCH (09:51)
[2017-06-22] MEDS: DOCUSATE ORAL LIQUID 100 MG/10 ML UD PO SCH (09:52)
[2017-06-22] MEDS: AMIODARONE HCL 200 MG TAB PO SCH (09:52)
[2017-06-22] MEDS: ASCORBIC ACID 500 MG TAB PO SCH (09:52)
[2017-06-22] MEDS: APIXABAN 2.5 MG TAB PO SCH (09:52)
[2017-06-22] MEDS: MULTIPLE VITAMIN TAB PO SCH (09:54)
[2017-06-22 13:25] VITALS: BP 114/53
[2017-06-22 14:55] LABS: INR 1.4 (0.9-1.15); Partial Thromboplastin Time 39.9 sec (22.64-33.71); Prothrombin Time 15.3 sec (9.37-12.3)
[2017-06-22 17:16] VITALS: BP 108/54
[2017-06-22 22:00] VITALS: BP 99/47
[2017-06-22] MEDS: METOPROLOL SUCCINATE XL 50 MG TAB PO SCH (22:00)
[2017-06-23] MEDS: APIXABAN 2.5 MG TAB PO SCH ×3 (00:32→22:50)
[2017-06-23] MEDS: DOCUSATE ORAL LIQUID 100 MG/10 ML UD PO SCH ×3 (00:32→22:49)
[2017-06-23] MEDS: InsuLIN REG 1unit/0.01ml Soln (100units/ml) SC SCH ×5 (00:33→22:00)
[2017-06-23 04:12] VITALS: BP 120/60
[2017-06-23] MEDS: ACCU-CHEK COMFORT CURVE STRIP VI SCH ×4 (06:19→22:51)
[2017-06-23 06:37] LABS: Basophils # (auto) 0 uL; Basophils % (auto) 0.4 % (0.0-2.0); Eosinophils # (auto) 0.1 uL; Eosinophils % (auto) 0.7 % (0.0-7.0); Hematocrit 27.7 % (41.0-53.0); Lymphocytes # (auto) 0.6 uL; Lymphocytes % (auto) 6.5 % (10.0-50.0); Mean Corpuscular Hemoglobin 27.7 pg (28.0-32.0); Mean Corpuscular Hgb Conc. 32.4 g/dL (32.0-36.0); Mean Corpuscular Volume 85.7 fL (80.0-100.0); Monocytes # (auto) 0.5 uL; Monocytes % (auto) 5.3 % (0.0-12.0); Neutrophils % (auto) 87.1 % (37.0-80.0); Nucleated Red Blood Cells % 0.1 %; Platelet Count (auto) 330 10^3/uL (140-450); Red Blood Cells 3.23 10^6/uL (4.5-5.90); Red Cell Distribution Width 14.8 % (11.8-14.3); White Blood Cell 9.2 10^3/uL (4.4-10.8)
[2017-06-23 07:07] LABS: Potassium 3.2 mmol/L (3.5-5.1)
[2017-06-23 07:12] LABS: Albumin 1.7 g/dL (3.4-5.0); BUN/Creatinine Ratio 21.7; Calcium 7.4 mg/dL (8.5-10.1)
[2017-06-23 07:14] LABS: Bilirubin, Total 0.6 mg/dL (0.2-1.0); Total Protein 5.3 g/dL (6.4-8.2)
[2017-06-23 09:00] VITALS: BP 124/65
[2017-06-23] MEDS ORDERED: POTASSIUM CHL 10% (20 MEQ/15ML) 15ml ORAL SOLN PO ONE (10:15)
[2017-06-23] MEDS: cefTRIAXone 1GM/10ml IVPUSH 10 ML IV SCH (10:35)
[2017-06-23] MEDS: Boost Glucose Control 8 Ounces PO SCH ×3 (10:35→18:11)
[2017-06-23] MEDS: AMIODARONE HCL 200 MG TAB PO SCH (10:36)
[2017-06-23] MEDS: ASCORBIC ACID 500 MG TAB PO SCH (10:37)
[2017-06-23] MEDS: MULTIPLE VITAMIN TAB PO SCH (10:37)
[2017-06-23] MEDS: SOD CHL 0.9%/ KCL 20MEQ 1,000 ML IV SCH (12:30)
[2017-06-23 13:00] VITALS: BP 125/72
[2017-06-23] MEDS ORDERED: LIDOCAINE 1% HCL (LOCAL ANESTH.) INJ 20ML MDV ID ONE (15:45)
[2017-06-23 17:00] VITALS: BP 112/59
[2017-06-23 20:00] VITALS: BP 134/69
[2017-06-23 22:00] VITALS: BP 134/69
[2017-06-23] MEDS: SODIUM CHLOR 0.9% PF (SALINE LOCK) 10ML VIAL IV SCH (22:49)
[2017-06-23] MEDS: METOPROLOL SUCCINATE XL 50 MG TAB PO SCH (22:50)
[2017-06-24] MEDS: InsuLIN REG 1unit/0.01ml Soln (100units/ml) SC SCH ×2 (06:11→11:30)
[2017-06-24] MEDS: ACCU-CHEK COMFORT CURVE STRIP VI SCH ×2 (06:11→11:30)
[2017-06-24 06:13] VITALS: BP 116/66
[2017-06-24] MEDS: Boost Glucose Control 8 Ounces PO SCH ×2 (07:56→12:14)
[2017-06-24 08:00] VITALS: BP 120/76
[2017-06-24] MEDS: DOCUSATE ORAL LIQUID 100 MG/10 ML UD PO SCH (10:00)
[2017-06-24] MEDS: cefTRIAXone 1GM/10ml IVPUSH 10 ML IV SCH (10:09)
[2017-06-24] MEDS: SODIUM CHLOR 0.9% PF (SALINE LOCK) 10ML VIAL IV SCH (10:09)
[2017-06-24] MEDS: AMIODARONE HCL 200 MG TAB PO SCH (10:10)
[2017-06-24] MEDS: MULTIPLE VITAMIN TAB PO SCH (10:10)
[2017-06-24] MEDS: APIXABAN 2.5 MG TAB PO SCH (10:10)
[2017-06-24] MEDS: ASCORBIC ACID 500 MG TAB PO SCH (10:10)
[2017-06-24 13:14] VITALS: BP 125/75
[2017-06-24] MEDS: SOD CHL 0.9%/ KCL 20MEQ 1,000 ML IV SCH ×2 (13:20)
== END 2017-06-24 14:18 | DRG 871 ==
LOC: ER 13:33 → EDBD 13:33 → EDUNIT# 13:33 → TELE 13:34 → TELE-CENTR 18:15
PROVIDERS: ADMIT Internal Medicine; ATTEND Family Medicine
PROC: 02HV33Z Insertion of Infusion Device into Superior Vena Cava, Percutaneous Approach (ICD-10-PCS; principal; 2017-06-20)
DX: A41.9 Sepsis, unspecified organism (principal); G93.41 Metabolic encephalopathy; L89.159 Pressure ulcer of sacral region, unspecified stage; I11.0 Hypertensive heart disease with heart failure; G20 Parkinson's disease; I48.91 Unspecified atrial fibrillation; I50.9 Heart failure, unspecified; E87.1 Hypo-osmolality and hyponatremia; N39.0 Urinary tract infection, site not specified; F02.80 Dementia in other diseases classified elsewhere, unspecified severity, without behavioral disturbance, psychotic disturbance, mood disturbance, and anxiety; E78.5 Hyperlipidemia, unspecified; J44.9 Chronic obstructive pulmonary disease, unspecified; E78.00 Pure hypercholesterolemia, unspecified; E11.9 Type 2 diabetes mellitus without complications; Z96.619 Presence of unspecified artificial shoulder joint; E87.6 Hypokalemia; Z83.3 Family history of diabetes mellitus
CPT/HCPCS: 36415; 36569; 51702; 70450; 71045; 80053; 81001; 82550; 82962; 83036; 83605; 83735; 83880; 84443; 84484; 85025; 85610; 85730; 87040; 87077; 87081; 87086; 87088; 87186; 87205; 93005; 94761; 96361; 96374; J1815